=== PATIENT | female | born 1945 | race Caucasian/White ===

== ENCOUNTER 2017-12-25 13:17 | Inpatient (IN) | payer MEDICARE ==
[~2017-12-25] VITALS: Ht 162.6 cm; Wt 40.8 kg
--- NOTE | ~2017-12-25 | HP ---
PATIENT: PACO RICHARD MEDICAL RECORD: [id number] ACCOUNT: [id number] LOCATION:[id number] : 46 ADMISSION DATE: 12/25/17 HISTORY AND PHYSICAL EXAMINATION REASON FOR ADMISSION: Abdominal pain and multi-drug resistant UTIs. HISTORY OF PRESENT ILLNESS: The patient is a 72-year-old female, patient of Dr. Jose Humphrey at [facility]. He obtained a urinalysis and culture that was abnormal on 12/15/2017. Resulted with multi-resistant except to penicillins and cephalosporins. It was a Proteus 99,000 colony count. For this reason, he referred her to infectious disease specialist, Dr. Dorcas Sepulveda because of her recent history of C. diff. She saw Dr. Sepulveda the day of admission and was told to go to the ED for further evaluation for abdominal pain. She denies fever, change in stools or diarrhea recently. She was hospitalized on 10/23/2017 by hospitalist, Dr. Stanton at [facility] for altered mental status due to diarrhea and dehydration. She was found to have C. diff colitis, diarrhea resolved after hydration and started on p.o. vancomycin, restarting her pancreatic enzymes for chronic pancreatitis. PAST MEDICAL HISTORY: Recent Clostridium difficile diarrhea, recurrent UTIs, history of left renal calculus [address] this year, chronic pancreatitis, general anxiety disorder, depression, coronary artery disease without angina pectoris, type 2 diabetes mellitus without complication, chronic pain syndrome due to lumbago, lumbar disk disease, followed by Dr. Madsen, chronic hypoxic respiratory failure, on home O2 at 2 liters, history of atrial fibrillation, basal cell carcinoma on her nose removed, coronary artery disease, compression fracture of lumbar spine remotely, remote fracture of both lower extremities requiring pinning, GERD, essential hypertension, hyperlipidemia, migraine headaches, history of pneumonia, hospitalized, peripheral vascular disease. SURGICAL HISTORY: Appendectomy, lumbar diskectomy, cholecystectomy, heart catheterization with nonobstructive CAD and EF 55% to 60% in 07/2012, [facility], [facility], remote PTCA of the left carotid, arthroplasty left thumb, cystoscopy with stent placement in 2015, kidney stone, spine stimulator placement by Dr. Tejada in 2011, retrograde pyelogram in 2016. ALLERGIES: CONTRAST DYE, BACLOFEN, CODEINE, CORTISONE, DILTIAZEM, DYAZIDE, IODINE, LIPITOR, LYRICA, MORPHINE, NEOSPORIN, PENICILLIN, SULFA, ZOCOR. SOCIAL HISTORY: One pack a day smoker for 50 years, quit in 2017. Denies alcohol use. Her a few years ago. FAMILY HISTORY: Father , had heart disease. Mother , had osteoarthritis, glaucoma, osteoporosis, was killed in a motor vehicle accident. One brother with cancer, another with heart disease and osteoporosis. HOME MEDICATIONS: Creon 4 capsules by mouth 4 times a day with meals, vancomycin 250 mg one capsule p.o. every 6 hours for 14 days, albuterol sulfate 90 mcg inhaler 2 puffs every 6 hours p.r.n., DuoNeb updrafts q.6 hours, aspirin 325 mg a day, Symbicort 2 puffs daily, vitamin D 5000 units daily, clonidine 0.1 mg p.o. t.i.d. for systolic pressure greater than 190, folic acid 1 mg p.o. every day, gabapentin 600 mg p.o. at bedtime, ipratropium 17 mcg HFA aerosol inhaler 2 puffs every 12 hours, Remeron 15 mg at bedtime, montelukast 10 mg in the evening, nitroglycerin 0.4 mg sublingual p.r.n. chest pain, omeprazole 20 mg HISTORY AND PHYSICAL [id number] PACO RICHARD p.o. b.i.d., Zofran 4 mg q.4 for nausea p.r.n., oxybutynin chloride 5 mg p.o. 2 tablets every day, oxycodone 7.5/325 one by mouth every 4 hours as needed for back pain, home O2 at 2 liters, pravastatin 20 mg with the evening meal, trazodone 100 mg p.o. one-half to one tab at bedtime for sleep. REVIEW OF SYSTEMS: GENERAL: She has not felt well for 2 weeks. No fever. HEENT: No recent visual change, sinus congestion, or sore throat. RESPIRATORY: Chronic shortness of breath. No recent cough, congestion or hemoptysis. CARDIAC: No exertional chest pain, claudication or edema. GASTROINTESTINAL: Nausea without vomiting and vague periumbilical right lower quadrant abdominal pain for the last several days, radiating to her right flank. She denies any recent diarrhea. GENITOURINARY: Has dysuria with foul smelling urine. GYNECOLOGIC: No vaginal bleeding. MUSCULOSKELETAL: Limited cervical and lumbar flexion. Negative SLR. INTEGUMENT: No rash or petechiae appreciated. NEUROLOGIC: Oriented to person, place, and time. Cranial nerves grossly intact bilaterally. Gait was not tested. LABORATORY DATA: Urinalysis shows greater than 50 white cells per high power field, moderate bacteria. CT scan of the abdomen reviewed from [facility] from October of this year shows a 3-mm stone in the left renal pelvis, nonobstructing, postoperative lumbar changes. Her CBC shows a white count of 10.4, H&H of 13.3 and 43.5 respectively, platelet count 157,000. Differential, neutrophils 67, lymphocytes 17, monocytes 14. Chemistry: Potassium 3.8, BUN and creatinine are 25 and 0.9, glucose is 122. Lactic acid 1.5. Magnesium low at 1.6. No current imaging done in the ED. ASSESSMENT: 1. Recurrent Proteus mirabilis urinary tract infection, multidrug resistant. 2. History of recent Clostridium difficile diarrhea and colitis. 3. Chronic obstructive pulmonary disease. 4. Abdominal and back pain, probably related to 1. 5. Cervical and lumbar disk disease. 6. Essential hypertension. 7. Chronic pain syndrome. PLAN: The patient will be admitted and placed on IV Rocephin based on her culture from [facility]. Resume her vancomycin p.o. and hydrate. Further workup pending clinical course. 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 [address] [place] [address]
[2017-12-25] MEDS ORDERED: PROVENTIL/2.5 MG/3 M INH (13:45)
[2017-12-25] MEDS ORDERED: ATROVENT HFA12.9 GM INH (13:46)
[2017-12-25] MEDS ORDERED: BAYER ASPIRIN325 MG PO (13:46)
[2017-12-25] MEDS ORDERED: BUSPAR10 MG PO (13:46)
[2017-12-25] MEDS ORDERED: NEURONTIN600 MG PO (13:47)
[2017-12-25] MEDS ORDERED: CATAPRES0.1 MG PO (13:47)
[2017-12-25] MEDS ORDERED: CREON DR 6,0001 EACH PO (13:47)
[2017-12-25] MEDS ORDERED: REMERON45 MG PO (13:47)
[2017-12-25] MEDS ORDERED: FOLATE0.4 MG PO (13:47)
[2017-12-25] MEDS ORDERED: OMEPRAZOLE20 M1 PO (13:48)
[2017-12-25] MEDS ORDERED: NITROSTAT0.4 MG SL (13:48)
[2017-12-25] MEDS ORDERED: ZOFRAN4 MG PO (13:48)
[2017-12-25] MEDS ORDERED: PRAVACHOL20 MG PO (13:48)
[2017-12-25] MEDS ORDERED: DITROPAN X5 MG/BOTTL PO (13:48)
[2017-12-25] MEDS ORDERED: SINGULAIR10 MG PO (13:48)
[2017-12-25] MEDS ORDERED: SPIRIVA18 MCG (13:49)
[2017-12-25] MEDS ORDERED: VENTOLIN HFA18 GM INH (13:49)
[2017-12-25] MEDS ORDERED: SYMBICORT 16010.2 GM INH (13:49)
[2017-12-25 14:51] LABS: BASOPHILS 0.2 % (0-2); EOSINOPHILS 0.7 % (0-7); HEMATOCRIT 43.5 % (36.0-48.0); HEMOGLOBIN 13.3 g/dL (12-16); IMMATURE GRANULOCYTES 0.1 % (0-5); LYMPHOCYTES 17.4 % (15-50); MCHC 30.6 g/dL (31.0-37.0); MCV 91.6 fL (80.0-100.0); MEAN PLATELET VOLUME 11.3 fL (7.4-10.4); MONOCYTES 14.2 % (2-11); NEUTROPHILS 67.4 % (40-80); PLATELET COUNT 157 10x3/uL (130-400); RBC 4.75 10x6/uL (4.00-5.40); RDW 13.8 % (11.5-14.5); WBC 10.4 10x3/uL (4.8-10.8)
[2017-12-25 15:11] LABS: ALBUMIN 3.2 g/dL (3.4-5.0); ANION GAP 5.8 mmol/L (8-16); BILIRUBIN - TOTAL 0.6 mg/dL (0.2-1.3); CREATININE - SERUM 0.9 mg/dL (0.6-1.3); MAGNESIUM - SERUM 1.6 mg/dL (1.8-2.4); POTASSIUM - SERUM 3.8 mmol/L (3.5-5.1); PROTEIN - SERUM 7.5 g/dL (6.4-8.2)
[2017-12-25 15:35] LABS: APPEARANCE HAZY (CLEAR); COLOR DK YELLOW (YELLOW)
[2017-12-25 15:41] LABS: WHITE CELLS - URINE >50 /hpf (0-5)
[2017-12-25 15:42] LABS: BACTERIA MANY /hpf (NONE SEEN); RED CELLS - URINE 0-5 /hpf (0-5)
[2017-12-25 20:00] VITALS: BP 148/70
[2017-12-25 21:00] VITALS: BP 149/58
[2017-12-25 22:30] VITALS: BP 126/44
[2017-12-25 23:30] VITALS: BP 107/38
[2017-12-26 01:04] VITALS: BP 147/42
[2017-12-26 04:00] VITALS: BP 101/50
[2017-12-26 05:48] LABS: BASOPHILS 0.1 % (0-2); EOSINOPHILS 0.2 % (0-7); HEMATOCRIT 36.9 % (36.0-48.0); HEMOGLOBIN 11.2 g/dL (12-16); IMMATURE GRANULOCYTES 0.1 % (0-5); LYMPHOCYTES 9.9 % (15-50); MCH 27.3 pg (26.0-34.0); MCHC 30.4 g/dL (31.0-37.0); MEAN PLATELET VOLUME 10.7 fL (7.4-10.4); MONOCYTES 14.2 % (2-11); NEUTROPHILS 75.5 % (40-80); PLATELET COUNT 149 10x3/uL (130-400); RDW 13.9 % (11.5-14.5); WBC 8.8 10x3/uL (4.8-10.8)
[2017-12-26 06:12] LABS: ALBUMIN 2.4 g/dL (3.4-5.0); ALKALINE PHOSPHATASE 59 U/L (46-116); BILIRUBIN - TOTAL 0.46 mg/dL (0.2-1.3); CALCIUM 7.8 mg/dL (8.5-10.1); CARBON DIOXIDE 33.6 mmol/L (21.0-32.0); CHLORIDE - SERUM 105 mmol/L (98-107); GLUCOSE 106 mg/dL (74-106); POTASSIUM - SERUM 3.6 mmol/L (3.5-5.1); SODIUM 143 mmol/L (136-145)
[2017-12-26 06:14] LABS: ALT (SGPT) 5 U/L (10-68); CALC OSMOLALITY 287 mosm/kg (275-300); CREATININE - SERUM 0.6 mg/dL (0.6-1.3); UREA NITROGEN 21 mg/dL (7-18); eGFR NON AFRICAN AMERICAN > 90 mL/min (90-120)
[2017-12-26 06:51] VITALS: BP 112/49
[2017-12-26 14:57] VITALS: Ht 162.6 cm; Wt 40.8 kg
[2017-12-26 20:00] VITALS: BP 128/52
[2017-12-27] VITALS: BP 114/49
[2017-12-27 04:00] VITALS: BP 95/35
[2017-12-27 06:50] LABS: BASOPHILS 0.5 % (0-2); EOSINOPHILS 2.3 % (0-7); HEMATOCRIT 32.6 % (36.0-48.0); HEMOGLOBIN 9.9 g/dL (12-16); IMMATURE GRANULOCYTES 0.2 % (0-5); LYMPHOCYTES 22.1 % (15-50); MCH 27.4 pg (26.0-34.0); MCHC 30.4 g/dL (31.0-37.0); MCV 90.3 fL (80.0-100.0); MEAN PLATELET VOLUME 10.5 fL (7.4-10.4); MONOCYTES 13.7 % (2-11); NEUTROPHILS 61.2 % (40-80); PLATELET COUNT 140 10x3/uL (130-400); RBC 3.61 10x6/uL (4.00-5.40); WBC 5.7 10x3/uL (4.8-10.8)
[2017-12-27 07:11] LABS: CALC OSMOLALITY 289 mosm/kg (275-300); CALCIUM 7.6 mg/dL (8.5-10.1); CARBON DIOXIDE 32.1 mmol/L (21.0-32.0); CHLORIDE - SERUM 107 mmol/L (98-107); CREATININE - SERUM 0.8 mg/dL (0.6-1.3); GLUCOSE 116 mg/dL (74-106); SODIUM 144 mmol/L (136-145); UREA NITROGEN 17 mg/dL (7-18); eGFR NON AFRICAN AMERICAN 75 mL/min (90-120)
[2017-12-27 11:28] VITALS: BP 131/52
[2017-12-27 15:43] VITALS: BP 104/43
[2017-12-27 21:04] VITALS: BP 114/43
[2017-12-28 04:00] VITALS: BP 139/48
[2017-12-28 07:40] LABS: BASOPHILS 0.4 % (0-2); EOSINOPHILS 5.7 % (0-7); HEMATOCRIT 31.2 % (36.0-48.0); HEMOGLOBIN 9.5 g/dL (12-16); IMMATURE GRANULOCYTES 0.2 % (0-5); LYMPHOCYTES 29.9 % (15-50); MCH 27.5 pg (26.0-34.0); MCHC 30.4 g/dL (31.0-37.0); MCV 90.2 fL (80.0-100.0); MONOCYTES 13.3 % (2-11); NEUTROPHILS 50.5 % (40-80); PLATELET COUNT 135 10x3/uL (130-400); RBC 3.46 10x6/uL (4.00-5.40); RDW 14.2 % (11.5-14.5); WBC 4.6 10x3/uL (4.8-10.8)
[2017-12-28 07:48] LABS: CALC OSMOLALITY 289 mosm/kg (275-300); CALCIUM 7.7 mg/dL (8.5-10.1); CARBON DIOXIDE 32.4 mmol/L (21.0-32.0); CHLORIDE - SERUM 110 mmol/L (98-107); CREATININE - SERUM 0.7 mg/dL (0.6-1.3); GLUCOSE 101 mg/dL (74-106); SODIUM 146 mmol/L (136-145); UREA NITROGEN 10 mg/dL (7-18); eGFR NON AFRICAN AMERICAN 87 mL/min (90-120)
[2017-12-28 07:49] LABS: POTASSIUM - SERUM 3.7 mmol/L (3.5-5.1)
[2017-12-28 08:57] VITALS: BP 112/49
[2017-12-28 13:24] VITALS: BP 119/34
[2017-12-28 20:00] VITALS: BP 121/53
[2017-12-29 09:10] VITALS: BP 115/42
[2017-12-29 13:39] VITALS: BP 136/48
[2017-12-29 17:34] VITALS: BP 133/43
[2017-12-29 20:00] VITALS: BP 137/56
[2017-12-30 05:40] VITALS: BP 142/60
[2017-12-30 09:53] VITALS: BP 114/31
[2017-12-30 13:08] VITALS: BP 144/48
[2017-12-30 20:00] VITALS: BP 135/49
[2017-12-31 04:00] VITALS: BP 115/35
[2017-12-31 06:04] LABS: BASOPHILS 0.4 % (0-2); EOSINOPHILS 4.6 % (0-7); HEMATOCRIT 32.2 % (36.0-48.0); HEMOGLOBIN 9.6 g/dL (12-16); IMMATURE GRANULOCYTES 0.6 % (0-5); LYMPHOCYTES 30.2 % (15-50); MCH 27.1 pg (26.0-34.0); MCHC 29.8 g/dL (31.0-37.0); MEAN PLATELET VOLUME 9.7 fL (7.4-10.4); MONOCYTES 11.2 % (2-11); RBC 3.54 10x6/uL (4.00-5.40); RDW 14.1 % (11.5-14.5); WBC 5.3 10x3/uL (4.8-10.8)
[2017-12-31 06:11] LABS: PLATELET COUNT 207 10x3/uL (130-400)
[2017-12-31 06:12] LABS: ANION GAP 4.5 mmol/L (8-16); CALCIUM 8.6 mg/dL (8.5-10.1); CREATININE - SERUM 0.9 mg/dL (0.6-1.3); POTASSIUM - SERUM 4.5 mmol/L (3.5-5.1)
[2017-12-31] MEDS ORDERED: MERREM 1 GM/NS 11 G1 IV (07:33)
[2017-12-31] MEDS ORDERED: VANCOMYCIN250 MG/51 PO (07:33)
[2017-12-31] MEDS ORDERED: LASIX20 MG PO (07:34)
[2017-12-31 08:47] VITALS: BP 146/54
[2017-12-31 12:21] VITALS: BP 138/57
== END 2017-12-31 15:25 | disposition home health service (06) | DRG 690 ==
LOC: D.ER 13:17 → D.MS 23:59
PROVIDERS: Emergency Medicine; Family Medicine; Student in an Organized Health Care Education/Training Program
PROC: 05HC33Z Insertion of Infusion Device into Left Basilic Vein, Percutaneous Approach (ICD-10-PCS; principal; 2017-12-29)
PROC: B54NZZA Ultrasonography of Left Upper Extremity Veins, Guidance (ICD-10-PCS; 2017-12-29)
DX: N12 Tubulo-interstitial nephritis, not specified as acute or chronic (principal); J96.11 Chronic respiratory failure with hypoxia; Z68.1 Body mass index [BMI] 19.9 or less, adult; B96.20 Unspecified Escherichia coli [E. coli] as the cause of diseases classified elsewhere; B96.4 Proteus (mirabilis) (morganii) as the cause of diseases classified elsewhere; N20.0 Calculus of kidney; M50.90 Cervical disc disorder, unspecified, unspecified cervical region; M51.9 Unspecified thoracic, thoracolumbar and lumbosacral intervertebral disc disorder; R10.9 Unspecified abdominal pain; I25.10 Atherosclerotic heart disease of native coronary artery without angina pectoris; J44.9 Chronic obstructive pulmonary disease, unspecified; F41.9 Anxiety disorder, unspecified; E11.9 Type 2 diabetes mellitus without complications; G89.4 Chronic pain syndrome; I48.91 Unspecified atrial fibrillation; K21.9 Gastro-esophageal reflux disease without esophagitis; E78.5 Hyperlipidemia, unspecified; I10 Essential (primary) hypertension; R63.4 Abnormal weight loss

== ENCOUNTER → 2018-01-04 12:18 | Outpatient (CLI) | payer MEDICARE ==
[2017-12-26 14:57] VITALS: BMI 15.4
[~2018-01-04 12:18] MED LIST: ATROVENT HFA12.9 GM INH; BAYER ASPIRIN325 MG PO; BUSPAR10 MG PO; CATAPRES0.1 MG PO; CREON DR 6,0001 EACH PO; DITROPAN X5 MG/BOTTL PO; FOLATE0.4 MG PO; LASIX20 MG PO; MERREM 1 GM/NS 11 G1 IV; NEURONTIN600 MG PO; NITROSTAT0.4 MG SL; OMEPRAZOLE20 M1 PO; PRAVACHOL20 MG PO; PROVENTIL/2.5 MG/3 M INH; REMERON45 MG PO; SINGULAIR10 MG PO; SPIRIVA18 MCG; SYMBICORT 16010.2 GM INH; VANCOMYCIN250 MG/51 PO; VENTOLIN HFA18 GM INH; ZOFRAN4 MG PO
[2018-01-04 14:15] LABS: BASOPHILS 0.6 % (0-2); EOSINOPHILS 2.5 % (0-7); HEMOGLOBIN 12.9 g/dL (12-16); IMMATURE GRANULOCYTES 0.3 % (0-5); LYMPHOCYTES 26.9 % (15-50); MCH 28.2 pg (26.0-34.0); MCHC 30.7 g/dL (31.0-37.0); MCV 91.7 fL (80.0-100.0); MEAN PLATELET VOLUME 10.1 fL (7.4-10.4); MONOCYTES 9.6 % (2-11); NEUTROPHILS 60.1 % (40-80); RBC 4.58 10x6/uL (4.00-5.40); RDW 14.5 % (11.5-14.5); WBC 9.7 10x3/uL (4.8-10.8)
[2018-01-04 14:21] LABS: PLATELET COUNT 380 10x3/uL (130-400)
== END | disposition home or self-care (01) ==
LOC: D.LABREF 12:18
PROVIDERS: Student in an Organized Health Care Education/Training Program
DX: N39.0 Urinary tract infection, site not specified (principal)

== ENCOUNTER → 2018-01-11 18:54 | Outpatient (CLI) | payer MEDICARE ==
[2017-12-26 14:57] VITALS: BMI 15.4
[2018-01-11 19:04] LABS: BASOPHILS 0.4 % (0-2); EOSINOPHILS 4.1 % (0-7); HEMATOCRIT 41.5 % (36.0-48.0); HEMOGLOBIN 12.9 g/dL (12-16); IMMATURE GRANULOCYTES 0.1 % (0-5); LYMPHOCYTES 26.6 % (15-50); MCH 28.4 pg (26.0-34.0); MCHC 31.1 g/dL (31.0-37.0); MCV 91.2 fL (80.0-100.0); MEAN PLATELET VOLUME 11.5 fL (7.4-10.4); MONOCYTES 7.4 % (2-11); NEUTROPHILS 61.4 % (40-80); PLATELET COUNT 241 10x3/uL (130-400); RBC 4.55 10x6/uL (4.00-5.40); RDW 14.1 % (11.5-14.5); WBC 6.9 10x3/uL (4.8-10.8)
[2018-01-11 19:15] LABS: CREATININE - SERUM 0.9 mg/dL (0.6-1.3)
== END | disposition home or self-care (01) ==
LOC: D.LABREF 18:54
PROVIDERS: Student in an Organized Health Care Education/Training Program
DX: R68.89 Other general symptoms and signs (principal); R94.4 Abnormal results of kidney function studies; R79.89 Other specified abnormal findings of blood chemistry

== ENCOUNTER → 2020-08-14 11:09 | Outpatient (CLI) | payer SELFPAY ==
[2017-12-26 14:57] VITALS: BMI 15.4
[2020-08-14 11:36] LABS: BASOPHILS 0.1 % (0-2); EOSINOPHILS 2.2 % (0-7); HEMATOCRIT 38.9 % (36.0-48.0); HEMOGLOBIN 11.4 g/dL (12-16); IMMATURE GRANULOCYTES 0.1 % (0-5); LYMPHOCYTE ABS# 2.35 10x3/uL (1.18-3.74); MCH 27.2 pg (26.0-34.0); MCHC 29.3 g/dL (31.0-37.0); MCV 92.8 fL (80.0-100.0); MONOCYTES 12.4 % (2-11); NEUTROPHIL ABS# 5.07 10x3/uL (1.56-6.13); NEUTROPHILS 58.2 % (40-80); PLATELET COUNT 275 10x3/uL (130-400); RBC 4.19 10x6/uL (4.00-5.40); RDW 15.3 % (11.5-14.5); WBC 8.7 10x3/uL (4.8-10.8)
[2020-08-14 11:40] LABS: INR 0.96 (0.85-1.17); PROTIME 11.8 SECONDS (11.6-15.0)
[2020-08-14 11:50] LABS: ALKALINE PHOSPHATASE 70 U/L (30-120); ALT (SGPT) 48 U/L (10-68); BILIRUBIN - TOTAL 0.21 mg/dL (0.2-1.3); CALC OSMOLALITY 291 mosm/kg (275-300); CALCIUM 9.2 mg/dL (8.5-10.1); CARBON DIOXIDE 39.3 mmol/L (21.0-32.0); CHLORIDE - SERUM 102 mmol/L (98-107); CHOL - HDL RATIO 2.1 ratio (2.3-4.1); CHOLESTEROL, TOTAL 169 mg/dL (0-200); CREATININE - SERUM 0.6 mg/dL (0.6-1.3); GLUCOSE 84 mg/dL (74-106); HDL CHOLESTEROL 81 mg/dL (32-96); LDL CHOLESTEROL 74 mg/dL (0-100); LDL-HDL RATIO 0.9 ratio (1.5-3.5); LIPASE 51 U/L (73-393); POTASSIUM - SERUM 4.1 mmol/L (3.5-5.1); PROTEIN - SERUM 5.9 g/dL (6.4-8.2); SODIUM 145 mmol/L (136-145); THYROID STIMULATING HORMONE 1.29 uIU/mL (0.36-3.74); TRIGLYCERIDE 73 mg/dL (30-200); UREA NITROGEN 23 mg/dL (7-18); eGFR NON AFRICAN AMERICAN > 90 mL/min (90-120)
== END | disposition home or self-care (01) ==
LOC: D.LABREF 11:09
PROVIDERS: ATTEND Legal Medicine
DX: Z02.0 Encounter for examination for admission to educational institution (principal)

== ENCOUNTER → 2020-09-06 20:49 | Outpatient (CLI) | payer SELFPAY ==
[2017-12-26 14:57] VITALS: BMI 15.4
[2020-09-06 21:26] LABS: BILIRUBIN NEGATIVE (NEGATIVE); KETONE NEGATIVE (NEGATIVE); NITRITE NEGATIVE (NEGATIVE); UROBILINOGEN NORMAL mg/dL (< 2)
== END | disposition home or self-care (01) ==
LOC: D.LABREF 20:49
PROVIDERS: ATTEND Family Medicine
DX: N39.0 Urinary tract infection, site not specified (principal)